=== PATIENT | female | born 1980 | race African-American/Black ===

== ENCOUNTER 2016-08-06 11:29 | Inpatient (IN) | payer OTHER ==
[~2016-08-06] VITALS: Ht 180.3 cm; Wt 61.7 kg
--- NOTE | ~2016-08-06 | HC ---
[facility] [place] [address] CONSULTATION Name: COLTON MARIE Room #: 429-P ADM IN M.R.#: [id number] Admission: 08/06/16 Attend Phys: Gilberto Morse MD Discharge: Date of : 76 Report #: [id number] THIS REPORT FOR: //name// CC: FAM unknown Gilberto Morse DATE OF SERVICE: 08/06/2016 REFERRING PROVIDER: Gilberto Morse MD REASON FOR CONSULTATION: Abdominal and back pain. HISTORY OF PRESENT ILLNESS: The patient is a 35-year-old -[place] female who presented with a 2-week history of abdominal and mid back pain radiating to the lower back. The patient had associated intermittent nausea and vomiting and states that her urine was extremely dark. As such, the patient presented for evaluation, whereby laboratories and a CT scan of the abdomen and pelvis were obtained. The patient's labs show normal findings throughout with normal white blood cell count, hemoglobin, creatinine and liver function enzymes. The patient's lipase was normal at 358 as well. Her lactate was normal at 0.7. Her urinalysis did show positive blood and bilirubin as well as leukocytes. CT scan of the abdomen and pelvis was then obtained showing diffuse fluid in the retroperitoneal space concerning for pancreatitis or retroperitoneal hemorrhage. There are calcifications in the retroperitoneal space as well more inferiorly of unknown etiology. No evidence of emphysematous pancreatitis or obvious infection was seen. As such, the patient was admitted and I was asked to evaluate. Currently, the patient is lying in her hospital bed resting and does not appear in any obvious distress. She is hungry and not nauseated at the present time. PAST MEDICAL HISTORY: Cervical cancer status post hysterectomy. She is status post thyroidectomy and a times 1. HOME MEDICATIONS: Synthroid. ALLERGIES: No known drug allergies. FAMILY HISTORY: Reviewed and noncontributory. SOCIAL HISTORY: The patient smokes half a pack of cigarettes daily and has done so for 21 years. She drinks alcohol only socially in special situations and does smoke marijuana daily. REVIEW OF SYSTEMS: GENERAL: The patient denies nocturnal fevers or chills. HEENT: No change in vision, change in hearing. [facility] [address] [place] [address] CONSULTATION Name: COLTON MARIE Room #: 429-P [facility] IN M.R.#: [id number] Admission: 08/06/16 Attend Phys: Gilberto oMrse MD Discharge: Date of : 76 Report #: [id number] NECK: No swelling or difficulty swallowing. HEART: No chest pain or palpitations. LUNGS: No cough or shortness of breath. ABDOMEN: Abdominal pain with nausea and vomiting. GENITOURINARY: No dysuria or hematuria. ENDOCRINE: No polyuria, polydipsia. HEMATOLOGIC: No history of bleeding or easy bruising. EXTREMITIES: No history of weakness or limited range of motion. NEUROLOGIC: No history of syncope or near syncopal episodes. SKIN AND INTEGUMENT: No history of abnormal lesions or moles. PSYCHIATRIC: No history of anxiety or depression. PHYSICAL EXAMINATION: VITAL SIGNS: Temperature 99.0, pulse 70, respirations 17, blood pressure 135/86. She stands 5 feet 11 inches tall and weighs 136 pounds. GENERAL: She is alert and oriented, in no acute distress. HEENT: Normocephalic, atraumatic. Pupils equal, round, reactive to light. NECK: Supple, without lymphadenopathy. Trachea midline. HEART: Regular rate and rhythm. LUNGS: Clear to auscultation bilaterally. ABDOMEN: Soft, nondistended, minimally tender throughout the epigastrium, but no guarding, rebound or peritoneal signs or symptoms. GENITOURINARY: Normal external female genitalia with minor CVA tenderness bilaterally. EXTREMITIES: No clubbing, cyanosis or edema. NEUROLOGIC: Cranial nerves 2-12 are grossly intact. PSYCHIATRIC: Normal mood and affect. SKIN AND INTEGUMENT: No abnormal lesions or moles. LABORATORY AND X-RAY DATA: CBC shows white blood cell count of 6.3 thousand, hemoglobin 15.3, platelets 238,000. Creatinine is 1.1. Liver function enzymes are all normal. Lipase was 358, which is normal. Her amylase was minimally elevated at 153. Urinalysis as per HPI. Lactic acid normal at 0.7. CT scan of the abdomen and pelvis as per HPI. ASSESSMENT AND PLAN: A 35-year-old -[place] female with a large amount of retroperitoneal fluid of unknown etiology, but no evidence of pancreatitis by laboratory studies. Her urinalysis is questionable for possible urinary tract infection versus microhematuria and even possibly small kidney stones with blood in her urine; however, there was evidence of squamous epithelial cells and so it may be contaminated. I will defer to the primary care service whether to repeat that in a clean catch fashion. At the present time, I see no evidence of surgical problem with the fluid in the retroperitoneum; however, as this could be subclinical pancreatitis, I recommend keeping her with scant clear liquid oral intake for bowel rest, continue aggressive IV fluid rehydration and have gastroenterology evaluate as well. [address] [address] CONSULTATION Name: COLTON MARIE Room #: 429-P ADM IN M.R.#: [id number] Admission: 08/06/16 Attend Phys: Gilberto Morse MD Discharge: Date of : 76 Report #: [id number] I sincerely appreciate this consult. I will follow closely and leave any further recommendations in the patient's chart as appropriate. <ELECTRONICALLY SIGNED> By: Tristen Shafer MD, FACS 08/07/16 [id number] Tristen Shafer MD, FACS /nt
[2016-08-06 11:30] VITALS: BP 138/102
[2016-08-06] MEDS ORDERED: LEVOTHYROXINE 0.1 MG PO (11:35)
[2016-08-06 12:04] LABS: ABSOLUTE NEUTROPHILS 4.8 thou/uL (1.4-8.2); BASOPHILS 0.5 % (0.0-2.0); EOSINOPHILS 0.4 % (0.0-3.0); HEMATOCRIT 44.2 % (37.0-47.0); HEMOGLOBIN 15.3 gm/dL (12.0-15.0); LYMPHOCYTES 14.9 % (24.0-44.0); MCH 33.4 pg (26.0-34.0); MCHC 34.6 g/dL (28.0-37.0); MCV 96.5 fL (80.0-100.0); MONOCYTES 7.5 % (1.0-8.0); POLYS 76.7 % (36.0-66.0); RBC 4.58 mil/uL (4.20-5.00); RDW 13.8 % (10.5-14.5); WBC 6.3 thou/uL (4.0-11.0)
[2016-08-06 12:05] LABS: MANUAL DIFF NO
[2016-08-06 12:09] LABS: URINE BILIRUBIN 1+ (Negative); URINE BLOOD 1+ (Negative); URINE COLOR YELLOW; URINE GLUCOSE-RANDOM* NEGATIVE (Negative); URINE KETONES TRACE (Negative); URINE NITRITE NEGATIVE (Negative); URINE PROTEIN (DIPSTICK) 1+ (Negative); URINE SPECIFIC GRAVITY >= 1.030 (1.003-1.035)
[2016-08-06 12:10] LABS: ICTOTEST (BILI CONFIRMATORY) Negative (Negative)
[2016-08-06 12:13] LABS: CALCIUM 9.7 mg/dL (8.5-10.1); CREATININE 1.1 mg/dL (0.6-1.0); POTASSIUM 3.4 mmol/L (3.5-5.1)
[2016-08-06 12:18] LABS: ALBUMIN 3.9 g/dL (3.4-5.0); TOTAL BILIRUBIN 0.9 mg/dL (<0.1-1.0); TOTAL PROTEIN 7.7 g/dL (6.4-8.2)
[2016-08-06 12:19] LABS: SQUAMOUS 4-10 Moderate /LPF (0-3)
[2016-08-06 12:20] LABS: BACTERIA 1-9 Few /HPF (None Seen); CASTS None Seen /LPF (None Seen); CRYSTALS None Seen /LPF (None Seen); URINE RBC 0-2 Rare /HPF (0-2); URINE WBC 6-15 Few /HPF (0-5)
[2016-08-06 12:24] LABS: LARGE PLATELETS FEW; PLATELET COUNT 238 thou/uL (150-400); PLATELET ESTIMATE NORMAL
[2016-08-06 13:16] LABS: AMYLASE 153 U/L (25-115)
[2016-08-06 15:14] VITALS: BP 110/69
[2016-08-06 15:37] VITALS: BP 135/86
[2016-08-06 20:00] VITALS: BP 108/65
[2016-08-07 04:54] VITALS: BP 121/75
[2016-08-07 05:50] LABS: HEMATOCRIT 39.7 % (37.0-47.0); HEMOGLOBIN 13.6 gm/dL (12.0-15.0); MCH 33.3 pg (26.0-34.0); MCHC 34.2 g/dL (28.0-37.0); MCV 97.3 fL (80.0-100.0); RBC 4.08 mil/uL (4.20-5.00); RDW 13.8 % (10.5-14.5); WBC 4.5 thou/uL (4.0-11.0)
[2016-08-07 06:09] LABS: CALCIUM 8.2 mg/dL (8.5-10.1); POTASSIUM 3.5 mmol/L (3.5-5.1)
[2016-08-07 07:55] VITALS: BP 103/73
[2016-08-07 15:33] VITALS: BP 105/70
[2016-08-07 20:00] VITALS: BP 122/84
[2016-08-08 04:00] VITALS: BP 127/79
[2016-08-08 07:56] VITALS: BP 129/61
[2016-08-08 15:17] VITALS: BP 125/86
[2016-08-08 21:00] VITALS: BP 117/76
[2016-08-09 03:35] VITALS: BP 115/78
[2016-08-09 04:13] LABS: HEMATOCRIT 36.8 % (37.0-47.0); HEMOGLOBIN 12.4 gm/dL (12.0-15.0); MCH 33.3 pg (26.0-34.0); MCHC 33.6 g/dL (28.0-37.0); MCV 99.1 fL (80.0-100.0); RBC 3.71 mil/uL (4.20-5.00); RDW 13.4 % (10.5-14.5); WBC 3.1 thou/uL (4.0-11.0)
[2016-08-09 04:24] LABS: CALCIUM 8.7 mg/dL (8.5-10.1); CREATININE 0.9 mg/dL (0.6-1.0); POTASSIUM 4.3 mmol/L (3.5-5.1)
[2016-08-09 08:32] VITALS: BP 127/79
[2016-08-09 15:26] VITALS: BP 112/77
[2016-08-09] MEDS ORDERED: NICOTINE TRANSD14 M1 TRANSDERM (17:52)
[2016-08-09] MEDS ORDERED: LEVAQUIN 500 M500 M2 PO (17:52)
[2016-08-09 18:40] VITALS: BP 112/77
== END 2016-08-09 19:10 | disposition home or self-care (01) | DRG 438 ==
LOC: ER 11:29 → EROBS 14:44 → 4E 14:44
PROVIDERS: Family Medicine; Nurse Practitioner Family
DX: K85.90 Acute pancreatitis without necrosis or infection, unspecified (principal); K68.19 Other retroperitoneal abscess; F17.210 Nicotine dependence, cigarettes, uncomplicated; E89.0 Postprocedural hypothyroidism; F12.90 Cannabis use, unspecified, uncomplicated; F10.10 Alcohol abuse, uncomplicated; Y90.9 Presence of alcohol in blood, level not specified; Z85.41 Personal history of malignant neoplasm of cervix uteri; Z79.899 Other long term (current) drug therapy; Z90.710 Acquired absence of both cervix and uterus; Z92.21 Personal history of antineoplastic chemotherapy; Z92.3 Personal history of irradiation
CPT/HCPCS: 10783